=== PATIENT | female | born 1940 | race Caucasian/White ===

== ENCOUNTER 2016-05-20 14:48 | Inpatient (IN) | payer MEDICARE, BC ==
[2016-05-20] VITALS (8 sets, daily range): BP systolic 104–152; BP diastolic 44–112
[~2016-05-20] VITALS: Ht 165.1 cm; Wt 57.2 kg
[~2016-05-20 14:48] MED LIST: ASPIRIN 81MG TA81 MG PO; DILTIAZEM ER 1120 MG PO
--- NOTE | 2016-05-20 15:11 | Emergency Room Report ---
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 N Clinical Suspician of Infection? N Mental Status: 1 - Regular (Normal Baseline) Sepsis Risk:Possible Sepsis Risk Have you (or family members/close friends) recently traveled outside the [place]? N If Yes, where/when: Have you had exposure to infectious disease within the past month? N TB? Other? Specify: Patient with a hx of intermittent Afib, is on aspirin and PO Cardizem, both of which she took this morning. She had acute onset of palpitations at about 2:15 today, similar to rapid Afib in the past. She is a patient of Dr. Henry at [facility] in [place]. No mica CP or SOB, but experiencing some nausea. ALLERGIES Coded Allergies: Sulfa (Sulfonamide Antibiotics) (05/20/16) butorphanol (From STADOL) (05/20/16) chlordiazepoxide (From LIBRAX (WITH CLIDINIUM)) (05/20/16) clidinium (From LIBRAX (WITH CLIDINIUM)) (05/20/16) codeine (05/20/16) cortisone (05/20/16) tetracycline (05/20/16) Uncoded Allergies: BUTAZOLIN (I-RASH 11/25/13) MYCINS (I-RASH 11/25/13) PCN (05/20/16) TOLECTIN (NERVOUS 11/25/13) Home Medications Active Scripts ASPIRIN (Aspirin) 81 MG PO DAILY #30 TAB Ref 11 Prov: 11/26/13 DILTIAZEM HCL (Diltiazem 24HR Cd) 120 MG PO DAILY #30 TAB Ref 11 Prov: 11/26/13 History Medical History General CAD? Yes Angina: No [place]: No Hypertension? No Hyperlipidemia? No CHF? No DVT? No PE? No COPD? Yes Asthma? No Anemia? No GERD? Yes Gastric ulcers? No GI Bleed? No Hernia? No Thyroid Problems? No Hypothyroidism? No CVA? No Seizures? No Diabetes? No Renal Insuffiency? No End Stage Renal Disease? No UTI? No Stones? No BPH? No GB Disease: No Nephritic Syndrome? No Asplenia? No Hepatitis? No Sickle Cell Disease? No Arthritis? No Migraines? No Cataracts? No Glaucoma? No MRSA? No HIV? No TB? No Anxiety? No Depression? No Cancer? No More? Yes Additional hx: ATRAIL FIBRILLATION Immunization Hx DT/Tetanus 5-10 Years Ago Flu [id number] Flu Season Pneumonia Refuses Surgical Hx Previous Surgery?N Social History Smoking Hx Smoker: Former Smoker Tobacco: No Alcohol Alcohol: No Review of Systems All Other Systems Reviewed and Negative Cardiovascular see HPI Physical Exam Vital Signs Vital Signs Date Time Temp Pulse Resp B/P Pulse O2 O2 Flow FiO2 Ox Delivery Rate 05/20 1551 98.1 119 18 141/57 96 2 05/20 1521 98.1 94 18 134/53 98 2 05/20 1505 98.1 97 18 146/67 99 2 05/20 1503 98 05/20 1453 98.1 170 20 152/112 98 2 General Appearance normal appearance, WD/WN, no apparent distress Eye Exam - bilateral eye normal exam, bilateral eye PERRL, bilateral eye EOMI Neck normal inspection, non-tender, supple, full range of motion Respiratory Status Yes: trachea midline, chest symmetrical, non tender chest. No: respiratory distress, use of accessory muscles, pain on inspiration, pain on expiration, productive cough, non productive cough. Lung Sounds bilateral: normal breath sounds, lungs clear. Cardiovascular no peripheral edema, no gallop (irr irr rapid Afib on monitor) Peripheral Pulses Pulses normal Yes (irr irr, full) Gastrointestinal normal bowel sounds, normal exam, non tender, soft, no organomegaly, no guarding, no rebound Extremities non-tender, normal range of motion, normal capillary refill, no calf tenderness, no pedal edema Neurologic alert, normal exam, no motor/sensory deficits, oriented x 3 Glascow Coma Scale Glascow Coma Scale Response Value EYE response: 4 Spontaneously 4 MOTOR response: 6 OBEYS 6 VERBAL response: 5 Oriented & Converses 5 Total 15 Skin intact, normal color, warm/dry Medical Decision Making LABS/Meds/Orders Pt receiving controlled substance in ED? No Results/Orders Laboratory Tests 05/20/16 1505: Sodium 141, Potassium 3.4 L, Chloride 102, Carbon Dioxide 29, BUN 17, Creatinine 0.9, Estimated Creat Clear 48 L, Estimated GFR (MDRD) 61, Glucose 149 H, Calcium 9.6, Total Bilirubin 0.4, AST 17, ALT 20, Alkaline Phosphatase 86, Creatine Kinase 73, CK-MB (CK-2) Rel Index 11.9 *H, CK and CKMB Interp 8.7 * H, Troponin I < 0.02, Total Protein 7.8, Albumin 4.1, Globulin 3.7 H, Albumin/ Globulin Ratio 1.1, PT 10.8, INR 1.01, APTT 25.0 05/20/16 1452: WBC Cancelled, RBC Cancelled, Hgb Cancelled, Hct Cancelled, MCV Cancelled, RDW Cancelled, Plt Count Cancelled, Gran % Cancelled, Gran # Cancelled, Lymphocytes % Cancelled, Eosinophils % Cancelled, Basophils % Cancelled, Lymphocytes # Cancelled, Eosinophils # Cancelled, Basophils # Cancelled, PUBS MCHC Cancelled, MCH Cancelled Current Medication Orders Sig/Ryne Start time Last Medication Dose Route Stop Time Status Admin Enoxaparin Sodium 57 MG ONCE ONE 05/20 1615 AC SC 05/20 1616 Ondansetron HCl 4 MG ONCE ONE 05/20 1530 CAN IV 05/20 1531 Diltiazem HCl 100 MG ONCE ONE 05/20 1515 AC 05/20 Sodium Chloride 100 ML IV 05/21 0114 1519 Diltiazem HCl 20 MG ONCE ONE 05/20 1515 DC 05/20 IV 05/20 1516 1516 Ondansetron HCl 4 MG 05/20 1515 CAN IV Sodium Chloride 1,000 ML .Q1H1M 05/20 1515 AC 05/20 IV 05/20 1615 1518 Sodium Chloride 10 ML PRN PRN 05/20 1515 AC IV 05/21 1509 Diltiazem HCl 0 .STK-MED ONE 05/20 1506 DC IV Sodium Chloride 100 ML .STK-MED ONE 05/20 1506 DC IV Sodium Chloride 10 ML PRN PRN 05/20 1500 AC IV 05/21 1452 Ondansetron HCl 0 .STK-MED ONE 05/20 1459 DC .ROUTE Orders Procedure Date/time Status Decision to admit 05/20 1605 Active ELECTROCARDIOGRAM REQUEST 05/20 1456 Active CHEST-PORTABLE 05/20 1456 Active PARTIAL THROMBOPLASTIN TIME 05/20 1456 Complete PROTHROMBIN TIME 05/20 1456 Complete ELECTROCARDIOGRAM REQUEST 05/20 1452 Active IV SALINE LOCK 05/20 1452 Active OXYGEN PER NURSE 05/20 1452 Active REHABILITATION PHYSICIAN 05/20 1452 Active CARDIAC ENZYMES 05/20 1452 Complete CHEM 12 PROFILE 05/20 1452 Complete 12 LEAD EKG-SABINA (INITIAL) 05/20 1450 Active CM/EKG CM/EKG EKG rapid Afib in the 1130-160 range, ST depression inferiorly on EKG number 1; EKG number 2 rate of [address] depression noted. EKG reviewed by cardiology as well. XRAY/CT/US XRAY/CT/US XRAY chest XR interpretation by reviewed by me Xray Results normal/NAD, no infiltrates, normal heart size, normal lung inflation mainor Consult MD Physician Consult Time Called 1541 Reason Admission, Cardiology eval/care Progress ED Progress Notes 1 Date 05/20/16 Time 1605 Comment IVF given along with 20 mg bolus of Diltiazem; HR still in the low 100's, Zofran given for nausea. Will initiate gtts Diltiazem and reassess. ED Progress Notes 2 Date 05/20/16 Time 1605 Comment Persistently in low 100's in Afib. I have consulted both Cas Salazar, with Dr. Philip Pacheco in cardiology and they have recommended continuing gtts, initiate Lovenox BID, admit to Dr. Goff covering for Dr. Orona; I have consulted with Dr. Goff and he has agreed to admission with cardiology consultation. Troponin normal; CKMB and RI abnormal. Departure Departure Time of Disposition 1607 Disposition Still a Patient Clinical Impression Primary Impression: Rapid atrial fibrillation Condition STABLE Referrals Yeyo RODGERS,A.C. (Family) ED Critical Care Critical Care Yes Time spent 30-74 min Vital system(s) involved: Circulatory Failure (rapid Afib) I was present at bedside for Coordinating pt's care, Interpreting EKGs/Strips , During my initial exam, Reviewing lab results, Reviewing old records, Discussing pt condition, For re-examinations, Examining radiographs (multiple reassessments) at 1612
[2016-05-20 15:38] LABS: BUN 17 mg/dL (7-18); GFR (ESTIMATED) 61 ML/MIN (59-)
[2016-05-20 16:38] LABS: FREE THYROXIN INDEX 6.8 ug/dl (5.93-13.13)
--- NOTE | 2016-05-20 16:39 | HISTORY AND PHYSICAL REPORT ---
Demographics: Admit date: 05/20/16 Chief complaint: racing heart PRIMARY DIAGNOSIS: atrial fibrillation Allergies: Coded Allergies: Sulfa (Sulfonamide Antibiotics) (05/20/16) butorphanol (From STADOL) (05/20/16) chlordiazepoxide (From LIBRAX (WITH CLIDINIUM)) (05/20/16) clidinium (From LIBRAX (WITH CLIDINIUM)) (05/20/16) codeine (05/20/16) cortisone (05/20/16) tetracycline (05/20/16) Uncoded Allergies: BUTAZOLIN (I-RASH 11/25/13) MYCINS (I-RASH 11/25/13) PCN (05/20/16) TOLECTIN (NERVOUS 11/25/13) History of present illness: History of present illness: 76-year-old female with history of paroxysmal atrial fibrillation presented to the emergency department with onset of racing heart around 2 PM. When symptoms did not resolve quickly as they will sometimes do she presented to the emergency department. Patient was in atrial fibrillation with rapid ventricular response. She was started on a Cardizem drip and currently her heart rate resides in the 90s to low 100s. First set of cardiac enzymes is negative. Patient is being admitted on a Cardizem drip. Her engraver letter is Dr. Henry. She has been seen by our cardiology service already. Patient is to be given Lovenox subcutaneously as an anticoagulant. Currently she takes only aspirin despite the urging by her engraver letter to be on a different anticoagulant Past medical history: Family HX Family Hx Insignificant No Immunization HX DT/Tetanus 5-10 Years Ago Flu [id number] Flu Season Pneumonia Refuses General CAD? Yes Angina: No [place]: No Hypertension? No Hyperlipidemia? No CHF? No DVT? No PE? No COPD? Yes Asthma? No Anemia? No GERD? Yes Gastric ulcers? No GI Bleed? No Hernia? No Thyroid Problems? No Hypothyroidism? No CVA? No Seizures? No Diabetes? No Renal Insuffiency? No UTI? No Stones? No BPH? No GB Disease: No Nephritic Syndrome? No Asplenia? No Hepatitis? No Sickle Cell Disease? No Arthritis? No Migraines? No Cataracts? No Glaucoma? No MRSA? No HIV? No TB? No Anxiety? No Depression? No Cancer? No More? Yes Additional hx: ATRAIL FIBRILLATION Past Surgical HX Previous Surgery?N Current home meds: Active Scripts ASPIRIN (Aspirin) 81 MG PO DAILY #30 TAB Ref 11 Prov: 11/26/13 DILTIAZEM HCL (Diltiazem 24HR Cd) 120 MG PO DAILY #30 TAB Ref 11 Prov: 11/26/13 Social Hx: Smoking HX Tobacco No Alcohol Alcohol: No Hx of Drug Use Drug Use? No Review of systems: Constitutional no symptoms reported. Respiratory no symptoms reported. Cardiovascular see HPI Gastrointestinal/Abdominal no symptoms reported Genitourinary no symptoms reported. Musculoskeletal no symptoms reported. Neurological Yes: no symptoms reported. Exam: Lab data for last 24 hours: Laboratory Tests 05/20/16 1505: Sodium 141, Potassium 3.4 L, Chloride 102, Carbon Dioxide 29, BUN 17, Creatinine 0.9, Estimated Creat Clear 48 L, Estimated GFR (MDRD) 61, Glucose 149 H, Calcium 9.6, Total Bilirubin 0.4, AST 17, ALT 20, Alkaline Phosphatase 86, Creatine Kinase 73, CK-MB (CK-2) Rel Index 11.9 *H, CK and CKMB Interp 8.7 * H, Troponin I < 0.02, Total Protein 7.8, Albumin 4.1, Globulin 3.7 H, Albumin/ Globulin Ratio 1.1, PT 10.8, INR 1.01, APTT 25.0 Admission vital signs: 1ST Vital Signs Result Date Time Pulse Ox 98 05/20 1453 B/P 152/112 05/20 1453 O2 Flow Rate 2 05/20 1453 Temp 98.1 05/20 1453 Pulse 170 05/20 1453 Resp 20 05/20 1453 Exam General appearance: normal appearance, alert, awake Eyes: normal exam, anicteric ENT: normal exam, mucous membranes moist Neck: normal inspection, non-tender, no carotid bruit, no JVD Cardiovascular: irregularly irregular Respiratory: normal exam, clear to auscultation ABD: normal exam, non-distended, normal bowel sounds Extremities: normal exam Neuro: normal exam, alert, no deficit Plan: Problem List 1. Atrial fibrillation with RVR Plan: Admit on Cardizem drip. Lovenox subcu every 12 hours Cardiology consult at 1638
--- NOTE | 2016-05-20 16:39 | HISTORY AND PHYSICAL REPORT ---
Demographics: Admit date: 05/20/16 Chief complaint: racing heart PRIMARY DIAGNOSIS: atrial fibrillation Allergies: Coded Allergies: Sulfa (Sulfonamide Antibiotics) (05/20/16) butorphanol (From STADOL) (05/20/16) chlordiazepoxide (From LIBRAX (WITH CLIDINIUM)) (05/20/16) clidinium (From LIBRAX (WITH CLIDINIUM)) (05/20/16) codeine (05/20/16) cortisone (05/20/16) tetracycline (05/20/16) Uncoded Allergies: BUTAZOLIN (I-RASH 11/25/13) MYCINS (I-RASH 11/25/13) PCN (05/20/16) TOLECTIN (NERVOUS 11/25/13) History of present illness: History of present illness: 76-year-old female with history of paroxysmal atrial fibrillation presented to the emergency department with onset of racing heart around 2 PM. When symptoms did not resolve quickly as they will sometimes do she presented to the emergency department. Patient was in atrial fibrillation with rapid ventricular response. She was started on a Cardizem drip and currently her heart rate resides in the 90s to low 100s. First set of cardiac enzymes is negative. Patient is being admitted on a Cardizem drip. Her documentation writer is Dr. Henry. She has been seen by our cardiology service already. Patient is to be given Lovenox subcutaneously as an anticoagulant. Currently she takes only aspirin despite the urging by her documentation writer to be on a different anticoagulant Past medical history: Family HX Family Hx Insignificant No Immunization HX DT/Tetanus 5-10 Years Ago Flu [id number] Flu Season Pneumonia Refuses General CAD? Yes Angina: No [place]: No Hypertension? No Hyperlipidemia? No CHF? No DVT? No PE? No COPD? Yes Asthma? No Anemia? No GERD? Yes Gastric ulcers? No GI Bleed? No Hernia? No Thyroid Problems? No Hypothyroidism? No CVA? No Seizures? No Diabetes? No Renal Insuffiency? No UTI? No Stones? No BPH? No GB Disease: No Nephritic Syndrome? No Asplenia? No Hepatitis? No Sickle Cell Disease? No Arthritis? No Migraines? No Cataracts? No Glaucoma? No MRSA? No HIV? No TB? No Anxiety? No Depression? No Cancer? No More? Yes Additional hx: ATRAIL FIBRILLATION Past Surgical HX Previous Surgery?N Current home meds: Active Scripts ASPIRIN (Aspirin) 81 MG PO DAILY #30 TAB Ref 11 Prov: 11/26/13 DILTIAZEM HCL (Diltiazem 24HR Cd) 120 MG PO DAILY #30 TAB Ref 11 Prov: 11/26/13 Social Hx: Smoking HX Tobacco No Alcohol Alcohol: No Hx of Drug Use Drug Use? No Review of systems: Constitutional no symptoms reported. Respiratory no symptoms reported. Cardiovascular see HPI Gastrointestinal/Abdominal no symptoms reported Genitourinary no symptoms reported. Musculoskeletal no symptoms reported. Neurological Yes: no symptoms reported. Exam: Lab data for last 24 hours: Laboratory Tests 05/20/16 1505: Sodium 141, Potassium 3.4 L, Chloride 102, Carbon Dioxide 29, BUN 17, Creatinine 0.9, Estimated Creat Clear 48 L, Estimated GFR (MDRD) 61, Glucose 149 H, Calcium 9.6, Total Bilirubin 0.4, AST 17, ALT 20, Alkaline Phosphatase 86, Creatine Kinase 73, CK-MB (CK-2) Rel Index 11.9 *H, CK and CKMB Interp 8.7 * H, Troponin I < 0.02, Total Protein 7.8, Albumin 4.1, Globulin 3.7 H, Albumin/ Globulin Ratio 1.1, PT 10.8, INR 1.01, APTT 25.0 Admission vital signs: 1ST Vital Signs Result Date Time Pulse Ox 98 05/20 1453 B/P 152/112 05/20 1453 O2 Flow Rate 2 05/20 1453 Temp 98.1 05/20 1453 Pulse 170 05/20 1453 Resp 20 05/20 1453 Exam General appearance: normal appearance, alert, awake Eyes: normal exam, anicteric ENT: normal exam, mucous membranes moist Neck: normal inspection, non-tender, no carotid bruit, no JVD Cardiovascular: irregularly irregular Respiratory: normal exam, clear to auscultation ABD: normal exam, non-distended, normal bowel sounds Extremities: normal exam Neuro: normal exam, alert, no deficit Plan: Problem List 1. Atrial fibrillation with RVR Plan: Admit on Cardizem drip. Lovenox subcu every 12 hours Cardiology consult at 1638
--- NOTE | 2016-05-20 16:41 | CONSULT NOTE ---
Standard Demographics Patient Demo Date of Consultation: 05/20/16 Referring Provider: Dell Goff MD Reason for Consultation: A. fib with RVR PRIMARY DIAGNOSIS: A. Fib Problem list Problem list: 1. PAF A. First episode, 1993 B. Second episode, 2013 C. Third episode, 04/2016 2. HTN 3. COPD with remote tobacco use (stopped 20 yrs ago) 4. History of reflux and sliding hiatal hernia History of present illness: History of present illness: 76-year-old white female with history of atrial fibrillation in the past for which she is on Cardizem and aspirin therapy presented to the emergency department for recurrence of atrial fibrillation today with a rapid ventricular response. Patient denies any recent cough, cold, fever, chest pain or shortness of breath. 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 She has not had a stress test or cardiac cath in the past. Initial troponin normal with elevated CK, CK-MB. EKG is atrial fibrillation with RVR and RBBB. Cardiology consulted for evaluation and recommendation. Past Medical History: General: Hypertension No CVA No Seizures No TB No COPD Yes Asthma No Diabetes No Angina No CA No Hyperlipidemia No Urinary No Cancer No Rheumatic H.D. No Ulcers No MRSA No GB Disease No Other N/A Additional hx ATRAIL FIBRILLATION Past Surgical HX: Previous Surgery?N Allergies Coded Allergies: Sulfa (Sulfonamide Antibiotics) (05/20/16) butorphanol (From STADOL) (05/20/16) chlordiazepoxide (From LIBRAX (WITH CLIDINIUM)) (05/20/16) clidinium (From LIBRAX (WITH CLIDINIUM)) (05/20/16) codeine (05/20/16) cortisone (05/20/16) tetracycline (05/20/16) Uncoded Allergies: BUTAZOLIN (I-RASH 11/25/13) MYCINS (I-RASH 11/25/13) PCN (05/20/16) TOLECTIN (NERVOUS 11/25/13) Home medications: Active Scripts ASPIRIN (Aspirin) 81 MG PO DAILY #30 TAB Ref 11 Prov: 11/26/13 DILTIAZEM HCL (Diltiazem 24HR Cd) 120 MG PO DAILY #30 TAB Ref 11 Prov: 11/26/13 Current Medications: Current Medications Sotalol HCl 80 MG BID PO Potassium Chloride 0 .STK-MED ONE PO (DC) Enoxaparin Sodium 57 MG ONCE ONE SC (DC) Potassium Chloride 10 MEQ ONCE ONE PO (DC) Potassium Chloride 0 .STK-MED ONE PO (DC) Enoxaparin Sodium 0 .STK-MED ONE SC (DC) Ondansetron HCl 4 MG ONCE ONE IV (CAN) Diltiazem HCl 100 MG ONCE ONE IV Sodium Chloride 100 ML Diltiazem HCl 20 MG ONCE ONE IV (DC) Ondansetron HCl 4 MG IV (CAN) Sodium Chloride 1,000 ML .Q1H1M IV (DC) Sodium Chloride 10 ML PRN PRN IV Diltiazem HCl 0 .STK-MED ONE IV (DC) Sodium Chloride 100 ML .STK-MED ONE IV (DC) Sodium Chloride 10 ML PRN PRN IV Ondansetron HCl 0 .STK-MED ONE .ROUTE (DC) Immunization HX DT/Tetanus 5-10 Years Flu 2013-FSN Pneumonia Refuses Family history Family HX Family Hx Insignificant No Social Hx: Smoking HX Tobacco No Alcohol Alcohol: No Hx of Drug Use Drug Use? No Patien't marital status is Patient's support system is good Review of systems: Constitutional No: no symptoms reported. Respiratory SOB with excertion. Cardiovascular see HPI, palpitations Gastrointestinal/Abdominal other Genitourinary No: no symptoms reported. Musculoskeletal No: no symptoms reported. Neurological No: no symptoms reported. Exam: Admission Vital Signs: 1ST Vital Signs Result Date Time Pulse Ox 98 05/20 1453 B/P 152/112 05/20 1453 O2 Flow Rate 2 05/20 1453 Temp 98.1 05/20 1453 Pulse 170 05/20 1453 Resp 20 05/20 1453 Last Vital Signs: Vital Signs Result Date Time Pulse Ox 96 05/20 1551 B/P 141/57 05/20 1551 O2 Flow Rate 2 05/20 1551 Temp 98.1 05/20 1551 Pulse 119 05/20 1551 Resp 18 05/20 1551 Exam General appearance: alert, awake, no acute distress Neck: no carotid bruit Cardiovascular: gallop, irregularly irregular, S3 present Respiratory: basilar rales, diminished breath sounds Extremities: moves all, no peripheral edema Neuro: alert, intact, oriented, speech clear Laboratory data: Laboratory Tests 05/20/16 1505: Sodium 141, Potassium 3.4 L, Chloride 102, Carbon Dioxide 29, BUN 17, Creatinine 0.9, Estimated Creat Clear 48 L, Estimated GFR (MDRD) 61, Glucose 149 H, Calcium 9.6, Total Bilirubin 0.4, AST 17, ALT 20, Alkaline Phosphatase 86, Creatine Kinase 73, CK-MB (CK-2) Rel Index 11.9 *H, CK and CKMB Interp 8.7 * H, Troponin I < 0.02, Total Protein 7.8, Albumin 4.1, Globulin 3.7 H, Albumin/ Globulin Ratio 1.1, PT 10.8, INR 1.01, APTT 25.0 Plan: Assessment: 1. Recurrent A. fib with RVR 2. COPD secondary to remote tobacco use. 3. HTN on admission 4. RBBB on EKG 5. Hypokalemia, replace 6. Reflux Recommendations: 1. Agree with admission. Continue to check serial cardiac enzymes. 2. Start sotalol in addition to Cardizem gtt 3. Start lovenox and switch to Xarelto after EKATERINA/Cardioversion tomorrow (if necessary). 4. Check 2D Echo and doppler in AM. 5. Add prilosec 40 mg daily at 1640
--- NOTE | 2016-05-20 22:51 | RADIOLOGY REPORT PS360 ---
CHEST-PORTABLE Ordering Physician: Shirley Roe MD Patient Age: 76 years: Female HISTORY: Afib chest discomfort. Abnormal rhythm TECHNIQUE: AP portable chest. FINDINGS Hyperexpansion at upper lung leahy suggesting. COPD. Density at the right cardiophrenic angle seen today and was present on previous 2013 study most likely reflecting anterior fat pad given its stability. No significant new findings. The heart appears upper normal in size maryan and mediastinal structures unremarkable. monitor technician leads are in place. No CHF. No pulmonary edema. No pleural effusion. IMPRESSION: Stable chest nothing definitely acute Relative Hyperexpansion at upper lung leahy may reflect COPD.
--- NOTE | 2016-05-20 22:51 | RADIOLOGY REPORT PS360 ---
CHEST-PORTABLE Ordering Physician: Shirley Roe MD Patient Age: 76 years: Female HISTORY: Afib chest discomfort. Abnormal rhythm TECHNIQUE: AP portable chest. FINDINGS Hyperexpansion at upper lung leahy suggesting. COPD. Density at the right cardiophrenic angle seen today and was present on previous 2013 study most likely reflecting anterior fat pad given its stability. No significant new findings. The heart appears upper normal in size maryan and mediastinal structures unremarkable. operations expert leads are in place. No CHF. No pulmonary edema. No pleural effusion. IMPRESSION: Stable chest nothing definitely acute Relative Hyperexpansion at upper lung leahy may reflect COPD.
[2016-05-21] VITALS (9 sets, daily range): BP systolic 92–112; BP diastolic 5–55
[2016-05-21 06:07] LABS: LYMPH # 2.5 K/mm3 (0.7-4.5); LYMPH % 38.6 % (10-50.0)
[2016-05-21 06:09] LABS: HEMOGLOBIN 12.1 g/dL (12.2-16.2)
[2016-05-21] MEDS ORDERED: BETAPACE 80MG T80 MG PO (07:08)
--- NOTE | 2016-05-21 07:08 | ACUTE CARE PROGRESS NOTE (QUA) ---
Progress Notes Subjective Date 05/21/16 Time 0706 Note Patient converted at 8pm yesterday. She has remained in Sinus rhythm. She feels well this a.m. She is now willing to take an anticoagulant Objective Findings Last VS-Temp:98.4 B/P:101/48 Pulse:55 Resp:18 SaO2:92 ROOM AIR Last weight lbs:126 oz:3 K.238 Method:Bed Scales Laboratory Tests 05/21/16 0550: Sodium 144, Potassium 4.1, Chloride 108 H, Carbon Dioxide 30, BUN 14, Creatinine 0.9, Estimated Creat Clear 50, Estimated GFR (MDRD) 61, Glucose 92, Calcium 8.7, Total Bilirubin 0.5, AST 12 L, ALT 18, Alkaline Phosphatase 65, Total Protein 6.2 L, Albumin 3.3 L, Globulin 2.9, Albumin/Globulin Ratio 1.1, WBC 6.4, RBC 4.03 L, Hgb 12.1 L, Hct 37.5, MCV 93.1, RDW 13.5, Plt Count 148, MPV 9.3, Gran % 52.1, Gran # 3.3, Lymphocytes % 38.6, Monocytes % 5.9, Eosinophils % 2.2, Basophils % 1.1, Lymphocytes # 2.5, Monocytes # 0.4, Eosinophils # 0.1, Basophils # 0.1, PUBS MCHC 31.8, MCH 29.6 05/20/16 2205: Troponin I 0.02 05/20/16 2100: Creatine Kinase 61, CK-MB (CK-2) Rel Index 16.1 *H, CK and CKMB Interp 9.8 *H, Troponin I 0.02 05/20/16 1905: Troponin I 0.02 05/20/16 1505: TSH 1.47, Free T4 Index 6.8, Thyroxine (T4) 8.3, T3 Uptake 33 05/20/16 1505: Sodium 141, Potassium 3.4 L, Chloride 102, Carbon Dioxide 29, BUN 17, Creatinine 0.9, Estimated Creat Clear 48 L, Estimated GFR (MDRD) 61, Glucose 149 H, Calcium 9.6, Total Bilirubin 0.4, AST 17, ALT 20, Alkaline Phosphatase 86, Creatine Kinase 73, CK-MB (CK-2) Rel Index 11.9 *H, CK and CKMB Interp 8.7 * H, Troponin I < 0.02, Total Protein 7.8, Albumin 4.1, Globulin 3.7 H, Albumin/ Globulin Ratio 1.1, PT 10.8, INR 1.01, APTT 25.0 Exam General appearance: alert, active, awake, no acute distress Cardiovascular: regular rate & rhythm Respiratory: clear to auscultation ABD: soft Assessment/Plan Problem List 1. Atrial fibrillation with RVR Patient condition Improving Plan: make medication changes, echo today. likely d/c home later today on sotalol, cardizem, xarelto This inpt stay is expected to cross 2 MNs from start of care No at 0708
[2016-05-21] MEDS ORDERED: XARELTO20 MG PO (07:09)
--- NOTE | 2016-05-21 07:28 | PHARMACY CLINIC NOTE ---
Patient Demographics Patient Demographics Admission date: 05/20/16 Date: 05/21/16 Time: 726 Allergies Coded Allergies: Sulfa (Sulfonamide Antibiotics) (05/20/16) butorphanol (From STADOL) (05/20/16) chlordiazepoxide (From LIBRAX (WITH CLIDINIUM)) (05/20/16) clidinium (From LIBRAX (WITH CLIDINIUM)) (05/20/16) codeine (05/20/16) cortisone (05/20/16) tetracycline (05/20/16) Uncoded Allergies: BUTAZOLIN (I-RASH 11/25/13) MYCINS (I-RASH 11/25/13) PCN (05/20/16) TOLECTIN (NERVOUS 11/25/13) HEIGHT- FT: 5 IN: 5.00 K.238 VTE General Information Labs: Laboratory Tests 05/21 05/20 0550 1505 Coagulation PT (9.4 - 11.8 SECONDS) 10.8 INR (0.9 - 1.1) 1.01 APTT (23.6 - 34.0 SECONDS) 25.0 Hematology Hgb (12.2 - 16.2 g/dL) 12.1 L Hct (37.0 - 47.0 %) 37.5 Plt Count (142 - 424 K/mm3) 148 Disclaimer The following section includes nursing documentation that has been pulled in for pharmacy review. Patient's VTE score: 3 Patient's VTE Risk: LOW RISK Clinical trial participant? No VTE prophylaxis NQF [id number] VTE prophylaxis ordered? Yes Type of prophylaxis/treatment: Lovenox (AND XARELTO) at 0728
--- NOTE | 2016-05-21 08:48 | ACUTE CARE PROGRESS NOTE (QUA) ---
See Addendum Progress Notes Subjective Date 05/21/16 Time 0844 Note 76 yo WF in NAD. She converted spontaneously to NSR last evening. Cardizem gtt discontinued and PO cardizem has been reordered. No complaints. She is ready to go home. Objective Findings Last VS-Temp:98.4 B/P:107/55 Pulse:63 Resp:18 SaO2:94 ROOM AIR Last weight lbs:126 oz:3 K.238 Method:Bed Scales Exam General appearance: alert, awake, no acute distress Cardiovascular: regular rate & rhythm Respiratory: clear to auscultation Extremities: moves all, no peripheral edema Neuro: alert, intact, oriented, speech clear Reviewed: medications, vital signs, lab results Assessment/Plan Problem List 1. Atrial fibrillation with RVR Assessment/Plan: Continue combination of cardizem extended release 120 mg daily with sotalol 80 mg BID. She is willing to start a/c in the form of Xarelto 20 mg daily which will begin later this afternoon with her biggest meal of the day. Will give a dose of lovenox this AM. Patient condition Stable Plan: OK for discharge home. Meds as above. Follow up in 1-2 wks. This inpt stay is expected to cross 2 MNs from start of care No at 0848
--- NOTE | 2016-05-21 16:03 | RADIOLOGY REPORT PS360 ---
PROCEDURE: 2-D M-mode and color Doppler study INDICATIONS FOR THE TEST: Chest pain COPDX Heart Murmur Tobacco SmokingEX Palpitations Fatigue Syncope Edema HypertensionXDiabetes Mellitus Rheumatic Fever SOB CERVANTES Obesity Hyperlipidemia Family History HD Additional History AF,RBBB PATIENT INFORMATION HEIGHT: 65 WEIGHT:125 GENDER: Female B/P:141/57 2-D/M-MODE INTERPRETATION: 2-D MEASUREMENTS OBSERVED VALUES IN CMS Right Ventricular Dimension (RVDd) 2.0 Interventricular Septum (Thickness)(IVsd) 2.0 Left Ventricular Internal Dimensions(LVIDd) 3.7 Left Ventricular Posterior Wall (Thickness)(LVPWd) 1.1 Aortic Root 3.1 Aortic Cusp Separation 1.8 Left Atrial Dimensions (LAD) 2.5 2D 1. The left atrium is qualitatively mildly enlarged, left ventricle is normal size, the intraventricular septum is abnormally thickened, it has granular sparkly echocardiographic appearance, raising the concern is for presence of infiltrative cardiomyopathy, or hypertrophic cardiomyopathy or primary possible cardiac lymphoma, a cardiac MRI on an endo myocardial biopsy is recommended for further evaluation. Visually estimated ejection fraction is 55% with no obvious regional wall motion abnormality. 2. The right atrium is mildly enlarged, the right ventricle is mildly dilated, there appears to be hypertrophy of the right ventricular free wall. Contractility of the right ventricle is normal. 3. The aortic valve is minimally thickened and fibrosed consistent with mild aortic sclerosis. 4. The mitral leaflets are minimally thickened, there is no mitral stenosis. 5. The tricuspid valve is structurally normal. 6. The pulmonic valve is not well visualized. 7. There is trivial pericardial effusion noted. DOPPLER INTERROGATION: Doppler interrogation of the aortic mitral and tricuspid valve reveals presence of mild aortic, mild mitral and mild tricuspid regurgitation calculated right ventricular systolic pressure is 37 mmHg consistent with mild pulmonary hypertension, grade 1 diastolic dysfunction seen without tissue Doppler evidence of raised left atrial pressure. CONCLUSION: 1. Mild biatrial enlargement, normal left ventricular size, visually estimated ejection fraction 55% with no obvious regional wall motion abnormality, markedly abnormal intraventricular septum as described above consider cardiac MRI or endomyocardial biopsy for further evaluation. Abnormal diastolic function without Doppler evidence of raised left atrial pressure. 2. Mild aortic, mild mitral and mild tricuspid regurgitation related right ventricular systolic pressure is 37 mmHg consistent with mild pulmonary hypertension. 3. Trivial pericardial effusion noted.
--- NOTE | 2016-05-23 07:51 | Discharge Summary ---
Demographics Admit date: 05/20/16 Discharge date: 05/21/16 Discharge diagnoses Problem List 1. Atrial fibrillation with RVR History of present illness History of present illness 76-year-old white female with history of atrial fibrillation in the past for which she is on Cardizem and aspirin therapy presented to the emergency department for recurrence of atrial fibrillation today with a rapid ventricular response. Patient denies any recent cough, cold, fever, chest pain or shortness of breath. 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 She has not had a stress test or cardiac cath in the past. Initial troponin normal with elevated CK, CK-MB. EKG is atrial fibrillation with RVR and RBBB. Patient was admitted and placed on a Cardizem drip. Approximately 8 PM on the day of admission the patient converted to a sinus rhythm. She had been started on sotalol 80 mg twice a day in addition to her Cardizem. On the following day the patient underwent echocardiogram which revealed a thickened intraventricular septum. This will require MRI. Patient remained in sinus rhythm. She was agreeable to anticoagulation was placed on Xarelto. Patient was discharged and she will follow-up for outpatient testing. Sotalol was discontinued at discharge. Patient was placed on Cardizem and beta jermaine for rate control. Medications Medications: Discharge meds are as noted. Follow up Follow up in office in: 7 DAYS with: Dell Goff MD at 0751
== END 2016-05-21 15:20 | disposition home or self-care (01) | DRG 310 ==
LOC: ER 14:48 → 2ND 16:12 → ER 16:12 → 2ND 17:48
PROVIDERS: Emergency Medicine; Family Medicine; Internal Medicine Cardiovascular Disease
DX: I48.91 Unspecified atrial fibrillation (principal)